=== PATIENT | male | born 1940 | race Caucasian/White ===

== ENCOUNTER 2017-04-29 06:29 | Inpatient (IN) | payer OTHER ==
[~2017-04-29] VITALS: Ht 180.3 cm; Wt 72.6 kg
[~2017-04-29 06:29] MED LIST: ASPIR-LOW81 MG PO; ASPIRIN81 M2 PO; ATORVASTATIN CA80 MG PO; CARVEDILOL3.125 MG PO; CLOPIDOGREL75 MG PO; FLOMAX0.4 MG PO; LISINOPRIL5 MG PO; MULTIPLE VITAM1 EAC1 PO; MULTIVITAMIN1 EAC2 PO; PRINIVIL20 MG PO
[2017-04-29 07:53] VITALS: BP 157/87
[2017-04-29 14:43] LABS: HEMATOCRIT 38.4 % (38.0-50.0); MCV 90.6 FL (86-99)
[2017-04-29 16:59] VITALS: BP 134/77
[2017-04-29 19:30] VITALS: BP 169/80
[2017-04-29 23:37] VITALS: BP 174/82
[2017-04-30] VITALS (7 sets, daily range): BP systolic 131–186; BP diastolic 66–91
[2017-04-30 06:07] LABS: HEMATOCRIT 36.4 % (38.0-50.0); MCHC 34.9 G/DL (30.0-36.0); MCV 88.8 FL (86-99); MEAN PLAT.VOLUME 10.2 uM^3 (9.0-12.4); PLATELET COUNT 193 K/uL (156-360); RBC DIS.WIDTH-CV 12.8 % (11.8-14.6); RBC DIS.WIDTH-SD 41.7 % (39-53)
[2017-04-30 07:10] LABS: ANION GAP 5 MEQ/L (2-14); CHLORIDE 105 MEQ/L (99-109); GFR ESTIMATE (CALCULATED) > 59 mL/min/; GLUCOSE 127 mg/dL (70-99); POTASSIUM 4.3 MEQ/L (3.7-5.4); SAMPLE HEMOLYSIS CHECK 0; SAMPLE ICTERIC CHECK 0; SAMPLE LIPEMIA CHECK 0; SODIUM 139 MEQ/L (136-147); UREA NITROGEN (BUN) 13 mg/dL (9-23)
[2017-05-01] VITALS (7 sets, daily range): BP systolic 158–191; BP diastolic 72–90
[2017-05-02 00:05] VITALS: BP 159/74
[2017-05-02 07:05] VITALS: BP 151/78
[2017-05-02 12:00] VITALS: BP 162/77
== END 2017-05-02 14:40 | disposition home or self-care (01) | DRG 657 ==
LOC: 2SOUTH 06:29 → EDSTATUS 09:20 → SDC 09:20 → 2SOUTH 09:21 → 5EAST 12:45 → 2SOUTH 14:51 → 5EAST 05-02 14:40
PROVIDERS: Urology
PROC: 0TT04ZZ Resection of Right Kidney, Percutaneous Endoscopic Approach (ICD-10-PCS; principal; 2017-04-29)
DX: C64.1 Malignant neoplasm of right kidney, except renal pelvis (principal); K56.7 Ileus, unspecified; K91.89 Other postprocedural complications and disorders of digestive system; N28.89 Other specified disorders of kidney and ureter; I10 Essential (primary) hypertension; E78.5 Hyperlipidemia, unspecified; N43.3 Hydrocele, unspecified; F17.210 Nicotine dependence, cigarettes, uncomplicated; R30.0 Dysuria; R33.9 Retention of urine, unspecified; Z85.46 Personal history of malignant neoplasm of prostate; Q27.2 Other congenital malformations of renal artery; Z79.899 Other long term (current) drug therapy; Z85.528 Personal history of other malignant neoplasm of kidney
CPT/HCPCS: 80048; 85014; 85018; 85027; 86900; 86901; 88307; 93005; 94799; J0131; J0360; J0690; J1100; J1170; J1580; J1885; J2250; J2405; J2710; J3010; J7050; J7120

== ENCOUNTER 2017-05-06 17:15 | Inpatient (IN) | payer OTHER ==
[~2017-05-06] VITALS: Ht 180.3 cm; Wt 76.9 kg
[2017-05-06] VITALS (13 sets, daily range): BP systolic 130–164; BP diastolic 56–101
[2017-05-06 17:49] LABS: CHLORIDE 113 mEq/L (99-109); POTASSIUM 3.5 mEq/L (3.7-5.4); SODIUM 144 mEq/L (136-147)
[2017-05-06 17:52] LABS: GLUCOSE 136 mg/dL (70-99)
[2017-05-06 17:53] LABS: ANION GAP 8 MEQ/L (2-14)
[2017-05-06 17:54] LABS: TOTAL BILIRUBIN 0.4 mg/dL (0.0-1.0)
[2017-05-06 17:55] LABS: ALKALINE PHOSPHATASE 45 IU/L (3-129)
[2017-05-06 17:56] LABS: GFR ESTIMATE (CALCULATED) 57 mL/min/
[2017-05-06 17:57] LABS: DIRECT BILIRUBIN 0.2 mg/dL (0.0-0.3)
[2017-05-06 17:59] LABS: LIPASE 39 U/L (1.0-51.0)
[2017-05-06 18:06] LABS: UREA NITROGEN (BUN) 47 mg/dL (9-23)
[2017-05-06 18:09] LABS: HEMATOCRIT 14.6 % (38.0-50.0); MCHC 32.9 G/DL (30.0-36.0); MCV 91.3 FL (86-99); MEAN PLAT.VOLUME 9.8 uM^3 (9.0-12.4); NRBC (%) 0.2 /100 WBC (0-0); PLATELET COUNT 254 K/uL (156-360); RBC DIS.WIDTH-CV 13.5 % (11.8-14.6); RBC DIS.WIDTH-SD 43.5 % (39-53); WHITE BLOOD COUNT 14.7 K/uL (4.1-10.2)
[2017-05-06 18:14] LABS: INTER. NORMALIZED RATIO 1.1; PROTHROMBIN TIME 11.5 (9.2-11.2)
[2017-05-06] MEDS ORDERED: PLAVIX75 MG PO (20:28)
[2017-05-06] MEDS ORDERED: LO-DOSE ASPIRIN81 M2 PO (20:29)
[2017-05-06 22:30] LABS: HEMATOCRIT 27.9 % (38.0-50.0); MCV 88.3 FL (86-99)
[2017-05-06 23:04] LABS: METH RESISTANT S AUREUS PCR NEGATIVE (NEGATIVE)
[2017-05-06 23:16] LABS: PROBE CHECK PASS; SPECIMEN PROCESSING CONTROL PASS
[2017-05-06 23:26] LABS: ADD MIUA? NO; BILIRUBIN NEGATIVE; BLOOD NEGATIVE; COLOR YELLOW ((YELLOW)); GLUCOSE (STRIP) NEGATIVE; KETONES NEGATIVE; LEUKOCYTES NEGATIVE; NITRITE NEGATIVE; PROTEIN (STRIP) NEGATIVE; SPECIFIC GRAVITY 1.023 (1.000-1.030); UCUL ADDED? NO; UROBILINOGEN 0.2 MG/DL (0.2-1.0)
[2017-05-07] VITALS (21 sets, daily range): BP systolic 139–163; BP diastolic 53–74
[2017-05-07 01:26] LABS: HEMATOCRIT 26.8 % (38.0-50.0); MCH 28.8 PG (29.0-34.0); MCHC 33.2 G/DL (30.0-36.0); MCV 86.7 FL (86-99); MEAN PLAT.VOLUME 9.5 uM^3 (9.0-12.4); NRBC (%) 0.3 /100 WBC (0-0); PLATELET COUNT 220 K/uL (156-360); RBC DIS.WIDTH-CV 14.9 % (11.8-14.6); RBC DIS.WIDTH-SD 46.5 % (39-53); WHITE BLOOD COUNT 11.6 K/uL (4.1-10.2)
[2017-05-07 01:29] LABS: RED BLOOD COUNT 3.09 M/uL (4.00-5.50)
[2017-05-07 06:26] LABS: HEMATOCRIT 25.6 % (38.0-50.0); MCH 28.6 PG (29.0-34.0); MCHC 32.8 G/DL (30.0-36.0); MCV 87.1 FL (86-99); MEAN PLAT.VOLUME 9.8 uM^3 (9.0-12.4); NRBC (%) 0.3 /100 WBC (0-0); PLATELET COUNT 209 K/uL (156-360); RBC DIS.WIDTH-CV 15.1 % (11.8-14.6); RBC DIS.WIDTH-SD 47.7 % (39-53); RED BLOOD COUNT 2.94 M/uL (4.00-5.50); WHITE BLOOD COUNT 9.8 K/uL (4.1-10.2)
[2017-05-07 06:27] LABS: INTER. NORMALIZED RATIO 1.1; PROTHROMBIN TIME 11.1 (9.2-11.2)
[2017-05-07 06:38] LABS: PTT 19.6 (25-32)
[2017-05-07 07:14] LABS: ANION GAP 8 MEQ/L (2-14); CHLORIDE 113 MEQ/L (99-109); GFR ESTIMATE (CALCULATED) > 59 mL/min/; MAGNESIUM 2.2 mg/dl (1.3-2.7); POTASSIUM 3.6 MEQ/L (3.7-5.4); SAMPLE HEMOLYSIS CHECK 0; SAMPLE ICTERIC CHECK 0; SAMPLE LIPEMIA CHECK 0; SODIUM 146 MEQ/L (136-147); UREA NITROGEN (BUN) 37 mg/dL (9-23)
[2017-05-07 07:17] LABS: GLUCOSE 97 mg/dL (70-99)
[2017-05-07 07:32] LABS: HEMATOCRIT 25.3 % (38.0-50.0); MCH 29.5 PG (29.0-34.0); MCHC 33.2 G/DL (30.0-36.0); MCV 88.8 FL (86-99); MEAN PLAT.VOLUME 9.8 uM^3 (9.0-12.4); NRBC (%) 0.4 /100 WBC (0-0); PLATELET COUNT 197 K/uL (156-360); RBC DIS.WIDTH-CV 15.3 % (11.8-14.6); RBC DIS.WIDTH-SD 48.9 % (39-53); RED BLOOD COUNT 2.85 M/uL (4.00-5.50)
[2017-05-07 08:05] LABS: TROP-I INTERPRETATION NEGATIVE; TROPONIN-I 0.07 ng/mL (0.0-0.30)
[2017-05-07 13:02] LABS: HEMATOCRIT 25.9 % (38.0-50.0); MCH 29.7 PG (29.0-34.0); MCHC 33.6 G/DL (30.0-36.0); MCV 88.4 FL (86-99); NRBC (%) 0.3 /100 WBC (0-0); PLATELET COUNT 204 K/uL (156-360); RBC DIS.WIDTH-CV 15.4 % (11.8-14.6); RBC DIS.WIDTH-SD 48.9 % (39-53); RED BLOOD COUNT 2.93 M/uL (4.00-5.50); WHITE BLOOD COUNT 9.1 K/uL (4.1-10.2)
[2017-05-07 13:05] LABS: TROP-I INTERPRETATION NEGATIVE; TROPONIN-I 0.06 ng/mL (0.0-0.30)
[2017-05-07 16:36] LABS: HEMATOCRIT 25.9 % (38.0-50.0); MCH 29.6 PG (29.0-34.0); MCHC 33.2 G/DL (30.0-36.0); NRBC (%) 0.5 /100 WBC (0-0); PLATELET COUNT 207 K/uL (156-360); RBC DIS.WIDTH-CV 15.7 % (11.8-14.6); RBC DIS.WIDTH-SD 49.6 % (39-53); RED BLOOD COUNT 2.91 M/uL (4.00-5.50); WHITE BLOOD COUNT 8.6 K/uL (4.1-10.2)
[2017-05-07 21:18] LABS: MCH 29.5 PG (29.0-34.0); MCHC 33.5 G/DL (30.0-36.0); MCV 88.1 FL (86-99); MEAN PLAT.VOLUME 9.8 uM^3 (9.0-12.4); NRBC (%) 0.5 /100 WBC (0-0); PLATELET COUNT 204 K/uL (156-360); RBC DIS.WIDTH-CV 15.4 % (11.8-14.6); RBC DIS.WIDTH-SD 48.5 % (39-53); RED BLOOD COUNT 2.95 M/uL (4.00-5.50); WHITE BLOOD COUNT 8.1 K/uL (4.1-10.2)
[2017-05-08 04:17] VITALS: BP 162/72
[2017-05-08 07:38] VITALS: BP 167/74
[2017-05-08 09:08] LABS: HEMATOCRIT 27.1 % (38.0-50.0); MCH 28.9 PG (29.0-34.0); MCHC 32.5 G/DL (30.0-36.0); MCV 89.1 FL (86-99); MEAN PLAT.VOLUME 9.7 uM^3 (9.0-12.4); NRBC (%) 0.2 /100 WBC (0-0); PLATELET COUNT 232 K/uL (156-360); RBC DIS.WIDTH-CV 15.5 % (11.8-14.6); RED BLOOD COUNT 3.04 M/uL (4.00-5.50); WHITE BLOOD COUNT 8.4 K/uL (4.1-10.2)
[2017-05-08 09:42] LABS: ANION GAP 7 MEQ/L (2-14); CHLORIDE 112 MEQ/L (99-109); GFR ESTIMATE (CALCULATED) > 59 mL/min/; GLUCOSE 86 mg/dL (70-99); MAGNESIUM 2.2 mg/dl (1.3-2.7); POTASSIUM 3.9 MEQ/L (3.7-5.4); SAMPLE HEMOLYSIS CHECK 0; SAMPLE ICTERIC CHECK 0; SAMPLE LIPEMIA CHECK 0; SODIUM 144 MEQ/L (136-147); UREA NITROGEN (BUN) 22 mg/dL (9-23)
[2017-05-08 12:35] VITALS: BP 154/70
[2017-05-08 15:14] VITALS: BP 145/65
[2017-05-08 21:45] VITALS: BP 180/72; BP 180/77
[2017-05-09 01:12] VITALS: BP 132/62
[2017-05-09 05:22] VITALS: BP 130/60
[2017-05-09 05:44] LABS: HEMATOCRIT 24.3 % (38.0-50.0); MCH 29.8 PG (29.0-34.0); MCHC 33.7 G/DL (30.0-36.0); MCV 88.4 FL (86-99); MEAN PLAT.VOLUME 9.8 uM^3 (9.0-12.4); PLATELET COUNT 199 K/uL (156-360); RBC DIS.WIDTH-CV 15.6 % (11.8-14.6); RBC DIS.WIDTH-SD 48.1 % (39-53); RED BLOOD COUNT 2.75 M/uL (4.00-5.50); WHITE BLOOD COUNT 6.9 K/uL (4.1-10.2)
[2017-05-09 07:30] VITALS: BP 136/65
[2017-05-09 12:00] VITALS: BP 136/65
[2017-05-09 16:20] VITALS: BP 130/60
[2017-05-09 21:00] VITALS: BP 151/82
[2017-05-10] VITALS (7 sets, daily range): BP systolic 146–176; BP diastolic 51–85
[2017-05-10 06:50] LABS: HEMATOCRIT 25.4 % (38.0-50.0); MCH 29.5 PG (29.0-34.0); MCHC 33.1 G/DL (30.0-36.0); MCV 89.1 FL (86-99); MEAN PLAT.VOLUME 9.9 uM^3 (9.0-12.4); PLATELET COUNT 221 K/uL (156-360); RBC DIS.WIDTH-CV 15.4 % (11.8-14.6); RBC DIS.WIDTH-SD 48.5 % (39-53); RED BLOOD COUNT 2.85 M/uL (4.00-5.50); WHITE BLOOD COUNT 7.8 K/uL (4.1-10.2)
[2017-05-10 07:21] LABS: ANION GAP 3 MEQ/L (2-14); CHLORIDE 108 MEQ/L (99-109); GFR ESTIMATE (CALCULATED) > 59 mL/min/; POTASSIUM 3.6 MEQ/L (3.7-5.4); SAMPLE HEMOLYSIS CHECK 0; SAMPLE ICTERIC CHECK 0; SAMPLE LIPEMIA CHECK 0; SODIUM 138 MEQ/L (136-147); UREA NITROGEN (BUN) 11 mg/dL (9-23)
[2017-05-10 07:23] LABS: GLUCOSE 110 mg/dL (70-99)
[2017-05-11 00:42] VITALS: BP 152/68
[2017-05-11 05:57] VITALS: BP 148/69
[2017-05-11 06:04] LABS: EOSINOPHIL (%) 3.1 % (0-5); EOSINOPHIL COUNT 0.2 K/uL (0-0.3); HEMATOCRIT 24.7 % (38.0-50.0); IMMATURE GRANULOCYTE COUNT 0.1 K/uL; INSTRUMENT ABS NEUTROPHIL CT 4.7 K/uL; LYMPHOCYTE COUNT 1.1 K/uL (1.0-2.8); MCH 29.2 PG (29.0-34.0); MCHC 32.8 G/DL (30.0-36.0); MCV 89.2 FL (86-99); MEAN PLAT.VOLUME 9.9 uM^3 (9.0-12.4); MONOCYTE (%) 10.2 % (3-12); MONOCYTE COUNT 0.7 K/uL (0-0.8); NEUTROPHIL (%) 68.9 % (45-76); NEUTROPHIL COUNT 4.7 K/uL (1.8-6.4); PLATELET COUNT 227 K/uL (156-360); RBC DIS.WIDTH-CV 15.1 % (11.8-14.6); RBC DIS.WIDTH-SD 48.4 % (39-53); RED BLOOD COUNT 2.77 M/uL (4.00-5.50); WHITE BLOOD COUNT 6.8 K/uL (4.1-10.2)
[2017-05-11 06:30] LABS: ANION GAP 5 MEQ/L (2-14); CHLORIDE 110 MEQ/L (99-109); GFR ESTIMATE (CALCULATED) > 59 mL/min/; GLUCOSE 85 mg/dL (70-99); POTASSIUM 4.3 MEQ/L (3.7-5.4); SAMPLE HEMOLYSIS CHECK 0; SAMPLE ICTERIC CHECK 0; SAMPLE LIPEMIA CHECK 0; SODIUM 140 MEQ/L (136-147); UREA NITROGEN (BUN) 6 mg/dL (9-23)
[2017-05-11 08:37] VITALS: BP 146/66
[2017-05-11 11:30] VITALS: BP 145/67
[2017-05-11 16:40] VITALS: BP 147/69
[2017-05-11 19:33] VITALS: BP 148/68
[2017-05-12 00:31] VITALS: BP 161/74
[2017-05-12 04:46] VITALS: BP 150/71
[2017-05-12 06:45] LABS: EOSINOPHIL (%) 3.7 % (0-5); EOSINOPHIL COUNT 0.3 K/uL (0-0.3); IMMATURE GRANULOCYTE COUNT 0.1 K/uL; INSTRUMENT ABS NEUTROPHIL CT 5.5 K/uL; LYMPHOCYTE COUNT 1.2 K/uL (1.0-2.8); MCH 29.2 PG (29.0-34.0); MCHC 32.8 G/DL (30.0-36.0); MEAN PLAT.VOLUME 9.7 uM^3 (9.0-12.4); MONOCYTE COUNT 0.7 K/uL (0-0.8); NEUTROPHIL COUNT 5.5 K/uL (1.8-6.4); PLATELET COUNT 254 K/uL (156-360); RBC DIS.WIDTH-CV 15.1 % (11.8-14.6); RBC DIS.WIDTH-SD 48.2 % (39-53); RED BLOOD COUNT 2.81 M/uL (4.00-5.50); WHITE BLOOD COUNT 7.8 K/uL (4.1-10.2)
[2017-05-12 07:09] LABS: ANION GAP 4 MEQ/L (2-14); CHLORIDE 108 MEQ/L (99-109); GFR ESTIMATE (CALCULATED) > 59 mL/min/; GLUCOSE 99 mg/dL (70-99); POTASSIUM 4.1 MEQ/L (3.7-5.4); SAMPLE HEMOLYSIS CHECK 0; SAMPLE ICTERIC CHECK 0; SAMPLE LIPEMIA CHECK 0; SODIUM 139 MEQ/L (136-147); UREA NITROGEN (BUN) 15 mg/dL (9-23)
[2017-05-12 07:24] VITALS: BP 156/77
[2017-05-12 11:43] VITALS: BP 128/82
[2017-05-12] MEDS ORDERED: LISINOPRIL10 MG PO (14:01)
[2017-05-12] MEDS ORDERED: PLAVIX75 MG PO (14:01)
[2017-05-12] MEDS ORDERED: LO-DOSE ASPIRIN81 M2 PO (14:02)
[2017-05-12] MEDS ORDERED: PANTOPRAZOLE SO40 MG PO (14:02)
== END 2017-05-12 15:06 | disposition home or self-care (01) | DRG 377 ==
LOC: EME 17:15 → EDOF 20:11 → 4WEST 20:11 → EDOF 20:11 → 4WEST 20:11 → 4EAST 20:11 → 4WEST 21:36 → 4EAST 05-07 22:58
PROVIDERS: Emergency Medicine; Internal Medicine; Internal Medicine Gastroenterology
DX: K57.31 Diverticulosis of large intestine without perforation or abscess with bleeding (principal); J18.9 Pneumonia, unspecified organism; D62 Acute posthemorrhagic anemia; J98.11 Atelectasis; R09.02 Hypoxemia; D12.3 Benign neoplasm of transverse colon; D12.0 Benign neoplasm of cecum; K64.8 Other hemorrhoids; I25.10 Atherosclerotic heart disease of native coronary artery without angina pectoris; I10 Essential (primary) hypertension; E78.5 Hyperlipidemia, unspecified; C64.9 Malignant neoplasm of unspecified kidney, except renal pelvis; K44.9 Diaphragmatic hernia without obstruction or gangrene; K20.9 Esophagitis, unspecified; K27.9 Peptic ulcer, site unspecified, unspecified as acute or chronic, without hemorrhage or perforation; F17.210 Nicotine dependence, cigarettes, uncomplicated; Z79.02 Long term (current) use of antithrombotics/antiplatelets; Z85.528 Personal history of other malignant neoplasm of kidney; Z95.5 Presence of coronary angioplasty implant and graft; Z90.5 Acquired absence of kidney; Z79.82 Long term (current) use of aspirin; Z85.46 Personal history of malignant neoplasm of prostate; I25.2 Old myocardial infarction; Z92.21 Personal history of antineoplastic chemotherapy
CPT/HCPCS: 70450; 71010; 74176; 80048; 80076; 81003; 82140; 83690; 83735; 84100; 84484; 85014; 85018; 85025; 85027; 85610; 85730; 86900; 86901; 86920; 87086; 87641; 88305; 88342 TC; 93005; 94799; 99281; 99285; C9113; J0696; J3480; J7030; J7050; P9016; P9035